=== PATIENT | male | born 1975 | race African-American/Black ===

== ENCOUNTER 2020-03-28 05:56 | Emergency (ER) | payer SELFPAY ==
[~2020-03-28] VITALS: Ht 177.8 cm; Wt 73.6 kg
[2020-03-28] MEDS ORDERED: LIDOCAINE 5% (LIDODERM) PATCH TD ONE (06:45)
[2020-03-28] MEDS ORDERED: ACETAMINOPHEN 500 MG TAB PO ONE (06:45)
[2020-03-28 07:06] LABS: BASO # 0.1 10^3/uL (0.0-0.2); BASO % 0.6 % (0.0-1.0); EOS # 0.3 10^3/uL (0.0-0.5); EOS % 3.5 % (0.0-3.0); HEMATOCRIT 43.8 % (42.0-52.0); LYMPH # 2.7 10^3/uL (1.5-5.0); LYMPH % 31.7 % (24.0-44.0); MEAN CORPUSCULAR HEMOGLOBIN 31.3 pg (27.0-33.0); MEAN CORPUSCULAR VOLUME 97.8 fl (80.0-96.0); MONO # 0.5 10^3/uL (0.0-0.8); MONO % 5.8 % (0.0-5.0); NEUTROPHILS # 4.9 10^3/uL (1.5-8.5); NEUTROPHILS % 57.9 % (36.0-66.0); PLATELET COUNT, AUTOMATED 302 10^3/uL (150-450); RED BLOOD COUNT 4.48 10^6/uL (4.30-6.10); WHITE BLOOD COUNT 8.5 10^3/uL (4.0-10.0)
[2020-03-28 07:34] LABS: BLOOD UREA NITROGEN 9 MG/DL (7-18); CALCIUM LEVEL 8.8 MG/DL (8.5-10.1); CARBON DIOXIDE LEVEL 27 MEQ/L (21-32); CHLORIDE LEVEL 111 MEQ/L (98-107); CREATININE FOR GFR 0.81 MG/DL (0.70-1.30); GLOMERULAR FILTRATION RATE > 60.0 (>60); GLUCOSE, FASTING 90 MG/DL (70-100); POTASSIUM SERUM 4.4 MEQ/L (3.5-5.1); SODIUM LEVEL 141 MEQ/L (136-145)
--- NOTE | 2020-03-28 07:44 | REPVR ---
PROCEDURE INFORMATION: Exam: CT Lumbar Spine Without Contrast Exam date and time: 03/28/2020 7:31 AM Age: 44 years old Clinical indication: Other: Midline and R low back pain TECHNIQUE: Imaging protocol: Computed tomography images of the lumbar spine without contrast. Radiation optimization: All CT scans at this facility use at least one of these dose optimization techniques: automated exposure control; mA and/or kV adjustment per patient size (includes targeted exams where dose is matched to clinical indication); or iterative reconstruction. COMPARISON: No relevant prior studies available. FINDINGS: Vertebrae: No acute fracture. Normal alignment. Discs/Spinal canal/Neural foramina: There is minimal diffuse disc bulge at L3-L4 and L4-L5. Vasculature: There is moderate calcification of the iliac arteries. Soft tissues: Unremarkable. IMPRESSION: Minimal diffuse disc bulge at L4-L5 and L3-L4 indenting the thecal sac. No significant neural foraminal narrowing appreciated. If patient's symptoms persist and clinically indicated, MRI may be obtained for further and better evaluation. Electronically signed by: Sanju Piña On 03/28/2020 07:44:00 AM
[2020-03-28 08:34] VITALS: BP 116/62
--- NOTE | 2020-03-28 10:00 | ED PDOC ---
Post-Departure Follow-Up suresh pardo, [facility] faxed formal reprt of ct ls spine for fu Sharon Ansari MD Mar 28, 2020 10:00
[2020-03-28] MEDS ORDERED: **NOTE PATIENT COMMENT** MISC XX ONE (18:45)
== END 2020-03-28 08:33 | disposition home or self-care (01) ==
LOC: M ED 05:56
DX: M51.26 Other intervertebral disc displacement, lumbar region (principal); M54.41 Lumbago with sciatica, right side; F41.9 Anxiety disorder, unspecified; F17.200 Nicotine dependence, unspecified, uncomplicated; F12.10 Cannabis abuse, uncomplicated; Z88.6 Allergy status to analgesic agent; Z91.013 Allergy to seafood